=== PATIENT | female | born 1960 | race American Indian/Alaskan Native ===

== ENCOUNTER 2018-09-16 10:36 | Outpatient (CLI) | payer OTHER ==
--- NOTE | 2018-09-16 13:39 | Mammography Report ---
BILATERAL DIGITAL SCREENING MAMMOGRAM with CAD: 09/16/18 10:36:00 CLINICAL: Routine screening. COMPARISON:None. A 2018 mammogram from [facility] is not available. FINDINGS: The breasts are heterogeneously dense, which may obscure small masses. No mass, architectural distortion or suspicious calcifications. IMPRESSION: No mammographic evidence of malignancy. BI-RADS CATEGORY: 1 - - Negative RECOMMENDATION: Routine mammographic screening in one year. COMMENT: Patient follow-up letters are generated by our [employer] application.
== END 2018-09-16 10:37 | disposition home or self-care (01) ==
LOC: SPVWC 10:36
PROVIDERS: ATTEND Specialist
DX: Z12.31 Encounter for screening mammogram for malignant neoplasm of breast (principal)
CPT/HCPCS: 77067

== ENCOUNTER 2019-10-13 11:22 | Outpatient (CLI) | payer OTHER ==
--- NOTE | 2019-10-18 08:55 | Mammography Report ---
DIGITAL SCREENING MAMMOGRAM WITH CAD, 10/13/2019 INDICATION: Routine screening mammography. TECHNIQUE: Digital bilateral 2D mammography was obtained in the craniocaudal and mediolateral obliq ue projections. This examination was interpreted with the benefit of Computer-Aided Detection analysi s. COMPARISON: 09/16/2018 FINDINGS: Breast Density: There are scattered areas of fibroglandular density. There is no evidence of dominant mass, suspicious calcifications or architectural distortion in eithe r breast. IMPRESSION: No mammographic evidence of malignancy. Follow up recommendation: Routine yearly BI-RADS Category 1: Negative. A "normal" or negative report should not discourage follow up or biopsy of a clinically significant f inding. A written summary of these findings will be mailed to the patient. The patient will be entered into a mammography reporting system which will generate a reminder letter for the patient's next appointmen t at the appropriate interval. The [employer] recommends yearly mammograms starting at age 40 and continuing as l victor manuel as a woman is in good health. Breast MRI is recommended for women with an approximate 20-25% or greater lifetime risk of breast cancer, including women with a strong family history of breast or ova gomez cancer or who have been treated for Hodgkin's disease. Signer Name: Romero Bain MD Signed: 10/18/2019 8:51 AM Workstation Name: [id number]
== END 2019-10-13 11:23 | disposition home or self-care (01) ==
LOC: SPVWC 11:22
PROVIDERS: ATTEND Specialist
DX: Z12.31 Encounter for screening mammogram for malignant neoplasm of breast (principal)
CPT/HCPCS: 77067